=== PATIENT | female | born 1970 | race Two or more races ===

== ENCOUNTER 2022-02-27 07:36 | Day surgery (SDC) | payer OTHER ==
[2022-02-27] MEDS ORDERED: PERCOCET 5-3251 EACH PO (13:03)
== END 2022-02-27 16:50 | disposition home or self-care (01) ==
LOC: CIR.AMB 07:36
PROVIDERS: ATTEND Surgery
DX: C73 Malignant neoplasm of thyroid gland (principal); Z88.8 Allergy status to other drugs, medicaments and biological substances; K21.9 Gastro-esophageal reflux disease without esophagitis; Z20.822 Contact with and (suspected) exposure to COVID-19; E06.9 Thyroiditis, unspecified

== ENCOUNTER 2022-05-07 12:45 | Inpatient (IN) | payer OTHER ==
[~2022-05-07] VITALS: Ht 167.6 cm; Wt 105.2 kg
[~2022-05-07 12:45] MED LIST: PERCOCET 5-3251 EACH PO
[2022-05-07] MEDS ORDERED: SYNTHROID50 MCG PO (14:49)
[2022-05-07] MEDS ORDERED: GLUMETZA500 MG PO (14:49)
== END 2022-05-11 14:07 | disposition home or self-care (01) | DRG 743 ==
LOC: O/R 05-09 07:36 → SURG 05-09 12:45 → OB/GYN 05-09 16:26
PROVIDERS: ADMIT Specialist; ATTEND Specialist
PROC: 0UT70ZZ Resection of Bilateral Fallopian Tubes, Open Approach (ICD-10-PCS; 2022-05-09)
PROC: 0UT20ZZ Resection of Bilateral Ovaries, Open Approach (ICD-10-PCS; 2022-05-09)
PROC: 0UT90ZZ Resection of Uterus, Open Approach (ICD-10-PCS; principal; 2022-05-09 14:45)
DX: D25.1 Intramural leiomyoma of uterus (principal); N80.0 Endometriosis of uterus; N83.291 Other ovarian cyst, right side; N83.292 Other ovarian cyst, left side; Z20.822 Contact with and (suspected) exposure to COVID-19